=== PATIENT | female | born 1970 | race Caucasian/White ===

== ENCOUNTER 2017-02-01 09:59 | Inpatient (IN) | payer OTHER ==
--- NOTE | 2016-12-26 11:26 | HISTORY & PHYSICAL EXAMINATION ---
DATE OF ADMISSION: 01/12/2017 CHIEF COMPLAINT: Pelvic pain, heavy vaginal bleeding and clotting. HISTORY OF PRESENT ILLNESS: The patient is a 46-year-old 4, para 4. She had tubal ligation for control. Her periods are coming every 30-60 days. She is having heavy bleeding, flooding, soaking over a pad an hour for days during her period, and this is also accompanied by severe lower back pain, pelvic pain. This has been present and worsening for over a year. She recently had an abdominal ultrasound which showed at least 2 large fibroids, 5 cm or over. She is presently being scheduled for removal of the uterus and upper portion of the cervix and she wishes to keep part of the cervix and both tubes and ovaries. She is also a smoker and she was advised to quit 2 months prior to surgery. PAST MEDICAL HISTORY: She has 4 children in good health. ALLERGIES: She has no known drug allergies. SURGICAL HISTORY: She had tubal ligation. She had a ganglion cyst removed from her left hand. MEDICAL HISTORY: She has had MRSA in the past, she has been treated for it and then cultured negative. SOCIAL HISTORY: A pack a day smoker for over 20 years. No history of excessive alcohol intake. Works at home. FAMILY HISTORY: Mom is 64, smoker, COPD, back pain. Father is 68, heavy drinker, smoker, several MIs. Got 2 sisters and 1 brother, all in good health. REVIEW OF SYSTEMS: HEAD: No symptoms of frequent or severe headaches. EYES: No symptoms of blurred vision, double vision. EARS: No symptoms of frequent ear infections, difficulty hearing. NOSE: No symptoms of frequent nosebleeds, difficulty breathing through her nose. THROAT: No symptoms of frequent or severe sore throats, difficulty swallowing. RESPIRATORY SYSTEM: No history of asthma, chest pain, shortness of breath. PHYSICAL EXAMINATION: GENERAL: Well-developed, well-nourished 46-year-old white female, alert, oriented x3 and cooperative, in no acute distress, appeared her stated age. EYES: Conjunctivae are pink, sclerae white, no evidence of jaundice. EARS: Normal light reflex bilaterally. NOSE: Normal mucosa. Septum is midline. There are no polyps. THROAT: No erythema or evidence of infection. Teeth are in good state of repair. HEAD: Normocephalic, normal distribution of hair. NECK: Supple. Trachea midline. Thyroid is not enlarged. There is no adenopathy appreciated. Both carotids are of good intensity. CHEST: Clear to auscultation and percussion. No wheezes, rales or rhonchi appreciated. HEART: Regular rhythm. S1, S2 are normal. BREASTS: Normal. ABDOMEN: Soft and nontender. PELVIC: Reveals a normal appearing cervix. Uterus is about 15-16 weeks' gestational size. No adnexal masses appreciated. MUSCULOSKELETAL: Reveals no calf tenderness. IMPRESSIONS OF THIS CASE: History of methicillin-resistant Staphylococcus aureus, status post removal of ganglion cyst left wrist, status post tubal ligation, and symptomatic uterine fibroids.
[2016-12-26 11:39] VITALS: BMI 39.0
--- NOTE | 2016-12-26 12:17 | PAT Medication Instructions ---
Service Date Dec 26, 2016. Current Home Medication List Aspirin Effervescent ([place]), 2 TAB PO PRN Ibuprofen (Advil), 800-1,000 MG PO PRN Vitamins C & E (Vitamin C), 1 TAB PO QAM [Calcium], 1 TAB PO BID [[place] 3], 1 TAB PO QAM [Potassium], 1 TAB PO QAM [Vitamin D], 1 TAB PO QAM Medication Instructions For Your Scheduled Surgery Aspirin Effervescent ([place]), 2 TAB PO PRN (check if it contains aspirin and if so try to avoid one week prior to surgery) - Hold the following medications 2 weeks prior to surgery: [place] 3 1 TAB PO QAM - Hold the following medications the morning of surgery: Potassium 1 TAB PO QAM Vitamin D 1 TAB PO QAM Calcium 1 TAB PO BID Vitamins C (Vitamin C), 1 TAB PO QAM Ibuprofen (Advil), 800-1,000 MG PO PRN (not told to hold by surgeon) - Take the following medications as scheduled the night before surgery: Calcium 1 TAB PO BID If you have any questions please call us at [phone] or [phone] ( [place]) or [phone]
[2016-12-26 12:53] LABS: BASO % 0.5 %; BASO ABS # 0.06 K/uL (0-0.2); COMPLETE YES; EOS % 1.1 %; HEMATOCRIT 38.4 % (37-47); IG% 0.3 %; LYMPH % 32.6 %; LYMPH ABS # 3.59 K/uL (1.2-3.4); MEAN CELL VOLUME 84.4 fL (80-100); MEAN CORPUSCULAR HEMOGLOBIN 27.3 pg (25-34); MEAN CORPUSCULAR HGB CONC 32.3 g/dl (32-36); MEAN PLATELET VOLUME 10.8 fL (7.4-10.4); MONO % 6.8 %; NEUT % 58.7 %; PLATELET COUNT 419 K/uL (130-400); RED BLOOD COUNT 4.55 M/uL (4.2-5.4)
[2016-12-26 13:05] LABS: INR 0.9 (0.9-1.1); PARTIAL THROMBOPLASTIN RATIO 1.1
[2016-12-26 13:33] LABS: BUN/CREATININE RATIO 17.6 (10-20); CALCIUM 9.9 mg/dl (8.5-10.1); CREATININE 0.97 mg/dl (0.60-1.20); POTASSIUM 4.1 mmol/L (3.5-5.1)
[2017-02-01] VITALS (9 sets, daily range): BP systolic 109–139; BP diastolic 70–84; PULSE 73–100; TEMP 36.7–36.9; O2SAT 91–98; Ht 160 cm; Wt 100.1 kg
[~2017-02-01] VITALS: Ht 160 cm; Wt 100.1 kg
[~2017-02-01 09:59] MED LIST: ASPITAB71 PO; CALC-51 PO; CEFOXITIN IV 2,000 MG in DEXTROSE 5% 50ML 50 ML IV SCH; IBUP-1050 PO; LACTATED RINGER'S 1000ML 1,000 ML IV SCH; OMEGA 3 PO; POTASSIUM PO; VITACAP26 PO; VITAMIN D PO
[2017-02-01] MEDS ORDERED: NALOXONE HCL 0.4 MG/1 ML VIAL/CARP IV PRN (10:30)
[2017-02-01] MEDS ORDERED: EpHEDrine SULFATE INJ 50 MG/ML AMP IV PRN (10:30)
[2017-02-01] MEDS ORDERED: LABETALOL HCL IV 5 MG/ML 20ML IV PRN (10:30)
[2017-02-01] MEDS ORDERED: FLUMAZENIL 0.1 MG/1 ML 10 ML VIAL IV PRN (10:30)
[2017-02-01] MEDS ORDERED: HYDROmorphone INJ 2 MG/ML SYR/VIAL IV PRN (10:30)
[2017-02-01] MEDS ORDERED: MEPERIDINE HCL 25 MG/ML CARP IV PRN (10:30)
[2017-02-01] MEDS ORDERED: ONDANSETRON INJ 2 MG/ML 2 ML VIAL IV PRN (10:30)
[2017-02-01] MEDS ORDERED: ATROPINE SULFATE 0.1 MG/ML 5ML SYR IV PRN (10:30)
[2017-02-01] MEDS ORDERED: PHENYLEPHRINE 100MCG/ML 5ML SYR IV PRN (10:30)
--- NOTE | 2017-02-01 11:18 | History & Physical Bridge Note ---
H&P Re-Evaluation Bridge Note: I have examined the patient, reviewed the History & Physical and in the interval since the performance of the History & Physical I have noted the following changes of clinical significance: No changes noted
--- NOTE | 2017-02-01 11:25 | History and Physical ---
History & Physical Date Feb 01, 2017. Chief Complaint heavy vaginal bleeding symptomatic fibroids History of Present Illness The patient is a 47 year old female with complaints of Additional History Hepatic Disease: No Endocrine Disorder: No Kidney Disease: No Hypertension: No Heart Disease: No Bleeding Tendencies: No Infectious Diseases: No Allergies Coded Allergies: Codeine (Unverified Allergy, Unknown, NAUSEA AND VOMITING, 12/26/16) Home Medications Scheduled Aspirin Effervescent ([place]), 2 TAB PO PRN Ibuprofen (Advil), 800-1,000 MG PO PRN Vitamins C & E (Vitamin C), 1 TAB PO QAM [Calcium], 1 TAB PO BID [Early 3], 1 TAB PO QAM [Potassium], 1 TAB PO QAM [Vitamin D], 1 TAB PO QAM Physical Examination Skin: warm/dry, no rash Eyes: normal inspection, EOMI, sclerae normal ENT: normal ENT inspection, pharynx normal Head: normocephalic, atraumatic Neck: supple, no adenopathy, trachea midline Respiratory/Chest: lungs clear, normal breath sounds, no respiratory distress Cardiovascular: regular rate, rhythm, no edema, no murmur Abdomen / GI: normal bowel sounds, non tender Back: normal inspection Extremities: normal inspection, normal range of motion Genitourinary - Female: + pertinent finding Neurologic/Psych: no motor/sensory deficits, alert, normal reflexes, oriented x 3 Addiitonal Comments: enlarged uterus due to fibroids heavy vaginal bleeding Diagnosis symptomatic uterine fibroids Plan of Treatment supracervical hysterectomy
[2017-02-01] MEDS ORDERED: LIDOCAINE HCL 2% 2 ML VIAL (20MG/ML) ONE (11:33)
[2017-02-01] MEDS ORDERED: ONDANSETRON INJ 2 MG/ML 2 ML VIAL ONE (11:33)
[2017-02-01] MEDS ORDERED: PROPOFOL IV EMULSION 10 MG/ML 20 ML VIAL IV ONE (11:33)
[2017-02-01] MEDS ORDERED: MIDAZOLAM HCL 1 MG/ML 2ML VIAL ONE (11:33)
[2017-02-01] MEDS ORDERED: ROCURONIUM BROMIDE 10 MG/ML 5 ML VIAL ONE (11:33)
[2017-02-01] MEDS ORDERED: NEOSTIGMINE METHYLSULFATE 5 MG/5 ML SYR ONE (11:33)
[2017-02-01] MEDS ORDERED: GLYCOPYRROLATE INJ 0.2 MG/ML VIAL ONE (11:33)
[2017-02-01] MEDS ORDERED: DEXAMETHASONE SOD INJ 4 MG/ML VIAL ONE (11:33)
[2017-02-01] MEDS ORDERED: FENTANYL CITRATE INJ 50 MCG/1 ML 2 ML VIAL ONE (11:34)
[2017-02-01] MEDS ORDERED: HEPARIN SOD (PORCINE) 1000 UNIT/ML 10 ML VIAL ONE (11:43)
[2017-02-01] MEDS ORDERED: HEPARIN SOD 5000 UNIT/0.5 ML CARP ONE (11:44)
[2017-02-01] MEDS ORDERED: HEPARIN SOD 5000 UNIT/0.5 ML CARP SQ ONE (12:15)
[2017-02-01 12:22] LABS: PREG INTERNAL NEGATIVE QC NEG CLEAR BACKGROUND; PREG INTERNAL POSITIVE QC POS CONTROL LINE
[2017-02-01] MEDS ORDERED: HYDROmorphone INJ 2 MG/ML SYR/VIAL ONE (12:22)
[2017-02-01] MEDS: FENTANYL CITRATE INJ 50 MCG/1 ML 2 ML VIAL IV PRN ×4 (14:13→14:28)
--- NOTE | 2017-02-01 14:14 | [facility] Operative Report ---
Operative Report Operative Date Feb 01, 2017. Pre-Operative Diagnosis symptomatic uterine fibroid Post-Operative Diagnosis symptomatic uterine fibroid Procedure(s) Performed Supracervical Hysterectomy, Removal of Left Hydrosalpinx and Left Ovary Surgeon Dr. Jesus Sotelo Police Captain Surgeon(s) Dr. Doug Perry Estimated Blood Loss 50ml Findings RIGHT HYDROSALPINX LARGE FIBROID UTERUS Specimens A. fibroid uterus B. Left fallopian tube and left ovary Disposition Recovery Room / PACU Indications HEAVY BLEEDING PELVIC PAIN Description of Procedure Indications for surgery pelvic pain and heavy vaginal bleeding. .preoperative diagnosis preoperative diagnosis symptomatic uterine fibroids. Postoperative diagnoses large fibroid uterus. Right hydrosalpinx. Dense pelvic adhesions. Procedure supracervical hysterectomy. Right salpingo-oophorectomy. Lysis of adhesions surgeon Dr. Sotelo. Police Captain Dr. Panchal. Estimated blood loss 100 mL. Anesthesia Gen. Operative findings and procedure patient was brought to the OR table correctly identified by armband and conversation. Marc catheter was inserted aseptically and a bladder connected to gravity drainage. Compression stockings were applied. Abdomen was painted with an alcohol based sterilizing solution and draped in usual sterile fashion. A midline incision was made and carried down to the anterior fascia by sharp dissection. Hemostasis was secured by electrocauterization the fascia was then entered in the midline and carried down to the pelvic brim and up towards the umbilicus. Peritoneum was carefully raised and entered in. An April'Vidal-O'[place] self retraining retractor was inserted into the incision and several moist laparotomy packs are used to retract the intestines. A large fibroid uterus consistent with about a 16-17 weeks gestational size uterus was encountered. The unit the fibroid was grasped with a double-tooth tenaculum. Round ligaments on either side were suture were ligated proximally and distally and cut. The posterior leaf of the broad ligament was punched through bluntly on each side. And then ligated proximally and distally. Thus taking down the adnexa from the fundus of the uterus. The left side had a large hydrosalpinx. And the tube was densely covered with adhesions. The bladder was then undermined. The operative field. Uterine vessels on either side were clamped with a curved [place]. Cut with a knife and then tied with a double suture chromic catgut. One small bite of the cardinal ligament was performed on each side. By sliding off the cervix. And then ligating the stumps with a double suture of chromic catgut. The surgical specimen was excised consistent of fibroid uterus and upper portion of the cervix. The cervix was whipstitched with a continuous interlocking suture chromic catgut to provide hemostasis. [place] drain with a safety pin was placed through the cervix into the vagina. The other end of the drain was placed in the cul-de-sac. Attention was turned to the left adnexa. Left adnexa was densely bound down adhesions and adherent to the lateral pelvic wall. We dissected the adnexa away from the lateral pelvic wall along with a hydrosalpinx and sent the tube and ovary for pathological evaluation. We tacked up the right tube and ovary to the right lateral pelvic wall. Pelvis was washed with with normal saline and careful inspection revealed no active bleeding. Packs were removed instrument count and pack count was normal. A careful anatomical approximation of the anterior abdominal wall was now performed. Peritoneum was closed with a continuous chromic gut suture fascia was closed with continuous chromic gut suture PDS. Starting at the top of the defect and the bottom of the defect. And then running to the middle subcutaneous was approximated continuous plain. Skin edges reapproximated with mattress sutures of nylon. The skin edges were approximated with staple clips. Patient our procedure well left the OR in good condition. This Dr. Montoya dictating I attest to the content of the Intraoperative Record and any orders documented therein. Any exceptions are noted below.
[2017-02-01] MEDS ORDERED: MEPERIDINE HCL 50 MG/ML CARP IV PRN (14:15)
[2017-02-01] MEDS ORDERED: SENNA 8.6 MG TAB PO PRN (14:15)
[2017-02-01] MEDS ORDERED: BISACODYL 10 MG SUPP PR PRN (14:15)
[2017-02-01] MEDS ORDERED: MAGNESIUM HYDROXIDE SUSP 30 ML UDC PO PRN (14:15)
--- NOTE | 2017-02-01 15:02 | Anesthesiology Progress Note ---
Anesthesia Post Op Note Date & Time Feb 01, 2017 at 15:02 Vital Signs Pain Intensity: 4 Vital Signs Past 12 Hours Date Time Temp Pulse Resp B/P (MAP) Pulse Ox O2 Delivery O2 Flow Rate FiO2 02/01/17 14:45 82 20 115/74 94 Nasal Cannula 2 02/01/17 14:35 63 13 127/80 93 Nasal Cannula 2 02/01/17 14:25 62 17 147/72 94 Nasal Cannula 2 02/01/17 14:15 74 21 140/96 95 Nasal Cannula 2 02/01/17 14:08 36.2 89 19 137/87 92 Mask 10 02/01/17 10:38 Room Air Notes Mental Status: alert / awake / arousable, participated in evaluation Pt Amnestic to Procedure: Yes Nausea / Vomiting: adequately controlled Pain: adequately controlled Airway Patency, RR, SpO2: stable & adequate BP & HR: stable & adequate Hydration State: stable & adequate Anesthetic Complications: no major complications apparent The patient appears to be resting comfortably.
[2017-02-01] MEDS: KETOROLAC TROMETHAMINE 30 MG/ML VIAL IV. PRN ×2 (15:55→22:07)
[2017-02-01] MEDS: D5W AND LACTATED RINGERS 1,000 ML IV SCH ×2 (16:05→23:22)
[2017-02-01] MEDS ORDERED: NURSING VERBAL MED ORDER ONE (16:45)
[2017-02-01] MEDS: NICOTINE 21 MG/24 HR TDSY EXT SCH (18:34)
[2017-02-01] MEDS: MEPERIDINE HCL 50 MG/ML CARP IV PRN (19:01)
[2017-02-02] MEDS: MEPERIDINE HCL 50 MG/ML CARP IV PRN (00:43)
[2017-02-02 04:15] VITALS: BP 130/84; PULSE 88; TEMP 37; O2SAT 95
[2017-02-02] MEDS: KETOROLAC TROMETHAMINE 30 MG/ML VIAL IV. PRN (04:21)
[2017-02-02 06:31] LABS: BASO % 0.1 %; BASO ABS # 0.01 K/uL (0-0.2); COMPLETE YES; HEMATOCRIT 32.1 % (37-47); IG% 0.3 %; LYMPH % 16.4 %; LYMPH ABS # 2.53 K/uL (1.2-3.4); MEAN CELL VOLUME 85.4 fL (80-100); MEAN CORPUSCULAR HEMOGLOBIN 28.2 pg (25-34); MEAN PLATELET VOLUME 10.8 fL (7.4-10.4); MONO % 8.4 %; NEUT % 74.8 %; PLATELET COUNT 345 K/uL (130-400); RED BLOOD COUNT 3.76 M/uL (4.2-5.4); WHITE BLOOD COUNT 15.43 K/uL (4.8-10.8)
[2017-02-02] MEDS: OXYCODONE/ACETAMINOPHEN 5-325 TAB PO PRN ×5 (07:12→23:21)
[2017-02-02 07:30] VITALS: BP 115/77; PULSE 102; TEMP 36.9; O2SAT 96
--- NOTE | 2017-02-02 07:56 | Anesthesiology Progress Note ---
Anesthesia Post Op Note Date & Time Feb 02, 2017 at 07:55 Vital Signs Vital Signs Past 12 Hours Date Time Temp Pulse Resp B/P (MAP) Pulse Ox O2 Delivery O2 Flow Rate FiO2 02/02/17 04:15 37.0 88 20 130/84 (99) 95 Room Air 02/01/17 23:20 36.7 96 20 119/80 (93) 94 Room Air 02/01/17 23:20 94 Room Air 02/01/17 22:44 94 Room Air 02/01/17 22:00 95 Room Air 02/01/17 20:30 97 Nasal Cannula 2.0 02/01/17 20:30 36.9 92 18 125/72 (89) 97 Nasal Cannula 2.0 Notes Mental Status: alert / awake / arousable, participated in evaluation Pt Amnestic to Procedure: Yes Nausea / Vomiting: adequately controlled Pain: adequately controlled Airway Patency, RR, SpO2: stable & adequate BP & HR: stable & adequate Hydration State: stable & adequate Anesthetic Complications: no major complications apparent
[2017-02-02] MEDS: NICOTINE 21 MG/24 HR TDSY EXT SCH (09:16)
--- NOTE | 2017-02-02 09:20 | Progress Note ---
Subjective Feb 02, 2017. Subjective conversation w/ patient Ambulation: limited ambulation Voiding: no voiding problems Passing Gas: Yes Diet Tolerance: Regular Diet Lochia: Small Review of Systems Constitutional: + fever Objective Vital Signs Date Time Temp Pulse Resp B/P (MAP) Pulse Ox O2 Delivery O2 Flow Rate FiO2 02/02/17 07:30 36.9 102 20 115/77 (90) 96 Room Air 02/02/17 07:30 96 Room Air 02/02/17 04:15 37.0 88 20 130/84 (99) 95 Room Air 02/01/17 23:20 36.7 96 20 119/80 (93) 94 Room Air 02/01/17 23:20 94 Room Air 02/01/17 22:44 94 Room Air 02/01/17 22:00 95 Room Air 02/01/17 20:30 97 Nasal Cannula 2.0 02/01/17 20:30 36.9 92 18 125/72 (89) 97 Nasal Cannula 2.0 02/01/17 18:30 36.9 100 18 139/77 (97) 96 Nasal Cannula 2.0 02/01/17 17:30 96 18 130/84 (99) 98 Nasal Cannula 2.0 02/01/17 16:30 82 18 109/75 (86) 91 Nasal Cannula 2.0 02/01/17 16:00 83 18 114/75 (88) 95 Nasal Cannula 2.0 02/01/17 15:25 36.7 73 16 130/70 (90) 95 Nasal Cannula 2.0 02/01/17 15:25 95 Nasal Cannula 2.0 02/01/17 15:25 95 Nasal Cannula 2.0 02/01/17 15:05 36.3 66 16 129/71 96 Nasal Cannula 2 02/01/17 14:55 77 23 112/64 95 Nasal Cannula 2 02/01/17 14:45 82 20 115/74 94 Nasal Cannula 2 02/01/17 14:35 63 13 127/80 93 Nasal Cannula 2 02/01/17 14:25 62 17 147/72 94 Nasal Cannula 2 02/01/17 14:15 74 21 140/96 95 Nasal Cannula 2 02/01/17 14:08 36.2 89 19 137/87 92 Mask 10 02/01/17 10:38 Room Air Physical Exam General Appearance: mild distress Respiratory/Chest: lungs clear Abdomen: normal bowel sounds, non tender Incision Description: Clean, Dry & Intact Extremities: no pedal edema, no calf tenderness Laboratory Results Last 24 Hours Test 02/01/17 11:31 02/02/17 05:59 Human Chorionic Gonadotropin, Qual NEG White Blood Count 15.43 K/uL Red Blood Count 3.76 M/uL Hemoglobin 10.6 g/dL Hematocrit 32.1 % Mean Corpuscular Volume 85.4 fL Mean Corpuscular Hemoglobin 28.2 pg Mean Corpuscular Hemoglobin Concent 33.0 g/dl Platelet Count 345 K/uL Mean Platelet Volume 10.8 fL Neutrophils (%) (Auto) 74.8 % Lymphocytes (%) (Auto) 16.4 % Monocytes (%) (Auto) 8.4 % Eosinophils (%) (Auto) 0.0 % Basophils (%) (Auto) 0.1 % Neutrophils # (Auto) 11.55 K/uL Lymphocytes # (Auto) 2.53 K/uL Monocytes # (Auto) 1.30 K/uL Eosinophils # (Auto) 0.00 K/uL Basophils # (Auto) 0.01 K/uL RDW Standard Deviation 49.5 fL RDW Coefficient of Variation 15.8 % Immature Granulocyte % (Auto) 0.3 % Immature Granulocyte # (Auto) 0.04 K/uL Assessment and Plan Post-Op Day#: 1
[2017-02-02] MEDS: IBUPROFEN 600 MG TAB PO PRN ×4 (11:19→23:21)
[2017-02-02 11:22] VITALS: BP 119/75; PULSE 102; TEMP 36.4
[2017-02-02 11:25] VITALS: O2SAT 95
[2017-02-02] MEDS ORDERED: NURSING VERBAL MED ORDER ONE (11:45)
[2017-02-02 15:00] VITALS: BP 119/81; PULSE 98; TEMP 36.7; O2SAT 96
[2017-02-02 23:25] VITALS: BP 124/83; PULSE 91; TEMP 36.7; O2SAT 94
[2017-02-03] MEDS: IBUPROFEN 600 MG TAB PO PRN ×4 (02:53→14:47)
[2017-02-03] MEDS: OXYCODONE/ACETAMINOPHEN 5-325 TAB PO PRN ×4 (02:53→14:48)
[2017-02-03 06:18] LABS: BASO % 0.3 %; BASO ABS # 0.03 K/uL (0-0.2); COMPLETE YES; EOS % 0.4 %; HEMATOCRIT 32.8 % (37-47); IG% 0.4 %; LYMPH % 25.6 %; LYMPH ABS # 2.86 K/uL (1.2-3.4); MEAN CELL VOLUME 86.1 fL (80-100); MEAN CORPUSCULAR HEMOGLOBIN 27.6 pg (25-34); MEAN PLATELET VOLUME 10.6 fL (7.4-10.4); MONO % 7.5 %; NEUT % 65.8 %; PLATELET COUNT 338 K/uL (130-400); RED BLOOD COUNT 3.81 M/uL (4.2-5.4); WHITE BLOOD COUNT 11.18 K/uL (4.8-10.8)
[2017-02-03 07:45] VITALS: BP 91/64; PULSE 88; TEMP 36.8; O2SAT 94
[2017-02-03] MEDS: NICOTINE 21 MG/24 HR TDSY EXT SCH (09:13)
--- NOTE | 2017-02-03 10:24 | Progress Note ---
Subjective Feb 03, 2017. Subjective conversation w/ patient Ambulation: ambulating normally Voiding: no voiding problems Passing Gas: Yes Diet Tolerance: Regular Diet Review of Systems Constitutional: + fever Objective Vital Signs Date Time Temp Pulse Resp B/P (MAP) Pulse Ox O2 Delivery O2 Flow Rate FiO2 02/03/17 07:55 Room Air 02/03/17 07:45 36.8 88 18 91/64 (73) 94 Room Air 02/02/17 23:25 94 Room Air 02/02/17 23:25 36.7 91 18 124/83 (97) 94 Room Air 02/02/17 20:17 Room Air 02/02/17 15:00 36.7 98 20 119/81 (94) 96 Room Air 02/02/17 15:00 96 Room Air 02/02/17 11:25 20 95 Room Air 02/02/17 11:22 36.4 102 119/75 (90) Physical Exam General Appearance: WELL-APPEARING Respiratory/Chest: lungs clear Abdomen: normal bowel sounds, non tender Incision Description: Clean, Dry & Intact Extremities: no pedal edema, no calf tenderness Laboratory Results Last 24 Hours Test 02/03/17 06:02 White Blood Count 11.18 K/uL Red Blood Count 3.81 M/uL Hemoglobin 10.5 g/dL Hematocrit 32.8 % Mean Corpuscular Volume 86.1 fL Mean Corpuscular Hemoglobin 27.6 pg Mean Corpuscular Hemoglobin Concent 32.0 g/dl Platelet Count 338 K/uL Mean Platelet Volume 10.6 fL Neutrophils (%) (Auto) 65.8 % Lymphocytes (%) (Auto) 25.6 % Monocytes (%) (Auto) 7.5 % Eosinophils (%) (Auto) 0.4 % Basophils (%) (Auto) 0.3 % Neutrophils # (Auto) 7.36 K/uL Lymphocytes # (Auto) 2.86 K/uL Monocytes # (Auto) 0.84 K/uL Eosinophils # (Auto) 0.05 K/uL Basophils # (Auto) 0.03 K/uL RDW Standard Deviation 51.1 fL RDW Coefficient of Variation 16.0 % Immature Granulocyte % (Auto) 0.4 % Immature Granulocyte # (Auto) 0.04 K/uL Assessment and Plan Post-Op Day#: 2 Continue Routine Care: guero drain with safety pin removed from vagina
--- NOTE | 2017-02-03 10:27 | Discharge Instructions ---
Discharge Instructions Date of Service Feb 03, 2017. Admission Reason for Admission: Fibroid Uterus, Pelvic Pain Discharge Discharge Diagnosis / Problem: fibroid uterus left hydrosalpinx pelvic adhesions Discharge Goals Goal(s): Routine recovery after surgery Activity Recommendations Activity Limitations: as noted below ACTIVITY RECOMMENDATIONS: * Gradual return to full activity over next 2-3 weeks. * No heavy lifting over next 2-3 weeks. * Nothing in the vagina (no intercourse, tampons, or douching) for 4weeks * You may walk up and down steps as necessary. * You may drive a car in 2 weeks. * Hot shower or tub bath daily. SPECIAL CARE INSTRUCTIONS: * Check temperature twice daily for one week. Report any elevation over 100.4 degrees Fahrenheit (38.0 degrees Celsius). * Call your doctor if bleeding becomes heavier than the heaviest part of your period - saturating a sanitary pad within an hour. * If you develop a red, hard, warm swollen lump on your incision or if you develop any separation of or drainage from your incision, notify your doctor. . Current Hospital Diet Patient's current hospital diet: Regular Diet Discharge Diet Recommended Diet: Regular Diet Procedures Procedures Performed: Supracervical Hysterectomy, Removal of Left Hydrosalpinx and Left Ovary Pending Studies Studies pending at discharge: no Medical Emergencies . Who to Call and When: Medical Emergencies: If at any time you feel your situation is an emergency, please call 911 immediately. . Non-Emergent Contact Non-Emergency issues call your: Freelance Operator Call Non-Emergent contact if: temperature is above 100.5 . . "Provider Documentation" section prepared by Jesus Sotelo. . VTE Core Measure Inpt VTE Proph given/why not?: Treatment not indicated
--- NOTE | 2017-02-03 10:46 | Discharge Summary ---
Discharge Summary Date of Service Feb 03, 2017. Discharge Summary Tanya Parker was admitted with pelvic pain and fibroid uterus. Mrs. Parker was taking as much as 8 ibuprofen tablets every 6 hours for pain control. Ultrasound showed a large fibroid uterus with several fibroids over 5 cm. Treatment options were discussed with the patient. The patient requested preservation of her cervix and ovaries. At the time of surgery the patient was noted to have in a large approximately 16 weeks gestational size uterus. Left hydrosalpinx with dense pelvic adhesions. This necessitated removal of the left tube and ovary. Right tube and ovary was preserved and tacked to the right lateral pelvic wall. The uterus consisting of fundus and fibroids was removed along with a left tube and ovary. Most of the cervix was preserved and a drain placed down through the cervical os and into the cul-de-sac estimated blood loss was over 100 mL. Patient in addition to compression stockings was given 5000 units of heparin preop due to the fact that the patient was a smoker. Postoperatively the patient did extremely well. She remained afebrile. Her hemoglobin dropped from about 12.5-10.5 on the second postoperative day also on the second postoperative day [place] drain was removed from the vagina along with a safety pin. At this time she was ambulating well and eating well. Patient requested discharge. Patient's pain had been control with a combination of Percocet and Motrin. Patient was given prescriptions for Percocet and Motrin. The scripts were filled the day prior to discharge. Patient was also given the usual discharge instructions. Patient was told to call the office if she had a temperature over 100 or if she had vaginal bleeding consisting of soaking a pad an hour for 2 hours. At the time of discharge incision was clean and dry. There is no evidence of infection and the patient was told to call the office in 1 week.
[2017-02-03 14:15] VITALS: BP 91/64; PULSE 88; TEMP 36.8; O2SAT 94
== END 2017-02-03 14:53 | disposition home or self-care (01) | DRG 743 ==
LOC: C.ACU 09:59 → C.MS4N 10:40 → ENRESERV 14:53
PROVIDERS: ADMIT Obstetrics & Gynecology; ATTEND Obstetrics & Gynecology
PROC: 0UT90ZZ Resection of Uterus, Open Approach (ICD-10-PCS; principal; 2017-02-01 12:00)
PROC: 0UBC0ZX Excision of Cervix, Open Approach, Diagnostic (ICD-10-PCS; principal; 2017-02-01 12:00)
PROC: 0UT10ZZ Resection of Left Ovary, Open Approach (ICD-10-PCS; principal; 2017-02-01 12:00)
PROC: 0UT60ZZ Resection of Left Fallopian Tube, Open Approach (ICD-10-PCS; principal; 2017-02-01 12:00)
DX: D25.9 Leiomyoma of uterus, unspecified (principal); N70.11 Chronic salpingitis; N73.6 Female pelvic peritoneal adhesions (postinfective); F17.200 Nicotine dependence, unspecified, uncomplicated; Z98.51 Tubal ligation status; Z82.49 Family history of ischemic heart disease and other diseases of the circulatory system; Z82.5 Family history of asthma and other chronic lower respiratory diseases